=== PATIENT | female | born 1990 | race Caucasian/White ===

== ENCOUNTER 2019-12-24 03:25 | Inpatient (IN) | payer BC ==
[2019-12-24] MEDS ORDERED: Ondansetron 4 MG/2 ML SDV IVPUSH PRN (03:43)
[2019-12-24] MEDS ORDERED: Sodium Chloride 0.9% 10 ML Syringe FLUSH PRN (03:43)
[2019-12-24] MEDS ORDERED: Ampicillin 2 GM in Sodium Chloride 0.9% 100 ML IV ONE (03:43)
[2019-12-24] MEDS ORDERED: Oxytocin/Lactated Ringers 10 UNIT/1,000 ML BAG IV SCH ×2 (03:45→11:30)
[2019-12-24] MEDS: Lactated Ringers 1,000 ML IV SCH ×3 (03:54→07:55)
[2019-12-24] MEDS ORDERED: ePHEDrine 50 MG/ML SDV IVPUSH PRN (04:31)
[2019-12-24] MEDS ORDERED: Bupivacaine/fentaNYL/NS 100 ML Bag EPIDUR PRN (04:31)
[2019-12-24] MEDS ORDERED: diphenhydrAMINE 50 MG/ML SDV IVPUSH PRN ×2 (04:31→14:01)
[2019-12-24] MEDS ORDERED: fentaNYL 100 MCG/2 ML SDV EPIDUR PRN (04:31)
--- NOTE | 2019-12-24 05:03 | PCM.PREANE ---
Preanesthetic Assessment - Anesthesia/Transfusion/Family Hx Anesthesia History: Prior Anesthesia Without Reaction Transfusion History: No Prior Transfusion(s) - Review of Systems General: No Symptoms Pulmonary: No Symptoms Cardiovascular: No Symptoms Gastrointestinal: No Symptoms Neurological: No Symptoms Other: Reports: None - Physical Assessment Vital Signs: Last Vital Signs Temp 98.2 F 12/24/19 03:32 Pulse 97 12/24/19 03:32 Resp 16 12/24/19 03:32 BP 147/85 H 12/24/19 03:32 Pulse Ox 98 12/24/19 03:32 Height: 1.65 m Weight: 118.252 kg ASA Class: 2 Airway Class: Mallampati = 3 Thyro-Mental Finger Breadths: 3 Mouth Opening Finger Breadths: 3 ROM/Head Extension: Full Lungs: Clear to Auscultation, Normal Respiratory Effort Cardiovascular: Regular Rate, Regular Rhythm - Lab Values: Laboratory Last Values WBC 16.96 K/mm3 (3.98-10.04) H 12/24/19 03:55 RBC 4.43 M/mm3 (3.98-5.22) 12/24/19 03:55 Hgb 12.8 gm/dl (11.2-15.7) 12/24/19 03:55 Hct 37.9 % (34.1-44.9) 12/24/19 03:55 MCV 85.6 fl (79.4-94.8) 12/24/19 03:55 MCH 28.9 pg (25.6-32.2) 12/24/19 03:55 MCHC 33.8 g/dl (32.2-35.5) 12/24/19 03:55 RDW Std Deviation 41.3 fL (36.4-46.3) 12/24/19 03:55 Plt Count 243 K/mm3 (182-369) 12/24/19 03:55 MPV 11.1 fl (9.4-12.3) 12/24/19 03:55 Neut % (Auto) 82.2 % (34.0-71.1) H 12/24/19 03:55 Lymph % (Auto) 9.4 % (19.3-51.7) L 12/24/19 03:55 [place] % (Auto) 7.2 % (4.7-12.5) 12/24/19 03:55 Eos % (Auto) 0.5 (0.7-5.8) L 12/24/19 03:55 Baso % (Auto) 0.1 % (0.1-1.2) 12/24/19 03:55 Neut # (Auto) 13.94 K/mm3 (1.56-6.13) H 12/24/19 03:55 Lymph # (Auto) 1.60 K/mm3 (1.18-3.74) 12/24/19 03:55 [place] # (Auto) 1.22 K/mm3 (0.24-0.36) H 12/24/19 03:55 Eos # (Auto) 0.08 K/mm3 (0.04-0.36) 12/24/19 03:55 Baso # (Auto) 0.02 K/mm3 (0.01-0.08) 12/24/19 03:55 Blood Type A POSITIVE 12/24/19 03:55 - Allergies Allergies/Adverse Reactions: Allergies Allergy/AdvReac Type Severity Reaction Status Date / Time No Known Allergies Allergy Verified 12/24/19 03:45 - Acknowledgements Anesthesia Type Planned: Epidural Pt an Appropriate Candidate for the Planned Anesthesia: Yes Alternatives and Risks of Anesthesia Discussed w Pt/Guardian: Yes Pt/Guardian Understands and Agrees with Anesthesia Plan: Yes PreAnesthesia Questionnaire Respiratory History: Reports: Asthma, Bronchitis, Recurrent Genitourinary History: Reports: STD, Other (See Below) Other Genitourinary History: HPV 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: , Other (See Below) Other OB/BYN History: abnormal pap Endocrine/Metabolic History: Reports: Obesity/BMI 30+ - SUBSTANCE USE Smoking Status *Q: Never Smoker Recreational Drug Use History: No - HOME MEDS Home Medications: Home Meds Vits #93/Iron Fum/FA [ Formula Tablet] 12/24/19 [History] - CURRENT (IN HOUSE) MEDS Current Meds: Current Medications Diphenhydramine HCl (Benadryl) 25 mg IVPUSH Q6H PRN PRN Reason: pruritis Ephedrine Sulfate (Ephedrine Sulfate) 5 mg IVPUSH ASDIRECTED PRN PRN Reason: Hypotension Fentanyl (Sublimaze) 100 mcg EPIDUR Q3H PRN PRN Reason: Pain Fentanyl/Bupivacaine HCl (Fentanyl/Bupivacaine/Ns 2 Mcg-0.125% 100 Ml) 100 ml EPIDUR ASDIRECTED PRN PRN Reason: Pain Ampicillin Sodium 1 gm/ Sodium (Chloride) 100 mls @ 200 mls/hr IV Q4H ISIS Lactated Ringer's (Ringers, Lactated) 1,000 mls @ 100 mls/hr IV ASDIRECTED ISIS Last Admin: 12/24/19 03:54 Dose: 999 mls/hr Oxytocin/Lactated Ringer's (Pitocin In Lr 10 Units/1,000 Ml) 10 unit in 1,000 mls @ 500 mls/hr IV .CONTINUOUS ISIS Ondansetron HCl (Zofran) 4 mg IVPUSH Q4H PRN PRN Reason: Nausea/Vomiting Sodium Chloride (Saline Flush) 10 ml FLUSH ASDIRECTED PRN PRN Reason: Keep Vein Open Discontinued Medications Ampicillin Sodium 2 gm/ Sodium (Chloride) 100 mls @ 200 mls/hr IV ONETIME ONE Stop: 12/24/19 04:12 Last Admin: 12/24/19 03:57 Dose: 200 mls/hr
[2019-12-24] MEDS: Ketorolac 30 MG/ML SDV IVPUSH SCH ×2 (06:48→18:21)
--- NOTE | 2019-12-24 07:15 | PCM.LDHP ---
L&D History of Present Illness - General Date of Service: 12/24/19 Admit Problem/Dx: Patient Status Order with Admit Dx/Problem 12/24/19 03:43 Patient Status [ADT] Routine Admission Diagnosis/Problem Admission Diagnosis/Problem Source of Information: Patient History Limitations: Reports: No Limitations - History of Present Illness Introduction:: Patient is a 29 y/o at 40 1/7 wks who presents for SROM/labor. Thinks SROM was late last night around 2300. Contractions strong on arrival at about 0330. Currently comfortable with epidural. 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: : 1 Para: 0 LMP (Approximate): Endocrine/Metabolic History: Reports: Obesity/BMI 30+ - Past Surgical History HEENT Surgical History: Reports: Oral Surgery Female Surgical History: Reports: LEEP Social & Family History - Tobacco Use Smoking Status *Q: Never Smoker - Alcohol Use Alcohol Use History: No - Recreational Drug Use Recreational Drug Use: No H&P Review of Systems - Review of Systems: Review Of Systems: See Below General: Reports: No Symptoms Pulmonary: Reports: No Symptoms Cardiovascular: Reports: No Symptoms Gastrointestinal: Reports: No Symptoms Genitourinary: Reports: No Symptoms Musculoskeletal: Reports: No Symptoms Psychiatric: Reports: No Symptoms L&D Exam - Exam Exam: See Below - Vital Signs Vital Signs: Last Vital Signs Temp 36.8 C 12/24/19 03:32 Pulse 97 12/24/19 03:32 Resp 16 12/24/19 03:32 BP 147/85 H 12/24/19 03:32 Pulse Ox 98 12/24/19 03:32 Weight: 118.252 kg - OB Specific Contraction Intensity: Moderate to Strong Movement: Active Heart Tones: Present Heart Tones per Min: 170 Heart Rate (FHR) Variability: Moderate (6-25 bmp) Presentation: Vertex - Hutton Score Hutton Score Cervix Position: Anterior Hutton Score Effacement: >80% Hutton Score Dilation: > 5 cm Hutton Score Infant's Station: -1 ,0 - Exam General: Alert, Oriented, Cooperative Lungs: Clear to Auscultation, Normal Respiratory Effort Cardiovascular: Regular Rate, Regular Rhythm GI/Abdominal Exam: Soft, Non-Tender Genitourinary: Normal external exam Extremities: Normal Inspection Skin: Warm, Dry, Intact - Patient Data Lab Results Last 24 hrs: Laboratory Results - last 24 hr 12/24/19 12/24/19 Range/Units 03:55 03:55 WBC 16.96 H (3.98-10.04) K/mm3 RBC 4.43 (3.98-5.22) M/mm3 Hgb 12.8 (11.2-15.7) gm/dl Hct 37.9 (34.1-44.9) % MCV 85.6 (79.4-94.8) fl MCH 28.9 (25.6-32.2) pg MCHC 33.8 (32.2-35.5) g/dl RDW Std Deviation 41.3 (36.4-46.3) fL Plt Count 243 (182-369) K/mm3 MPV 11.1 (9.4-12.3) fl Neut % (Auto) 82.2 H (34.0-71.1) % Lymph % (Auto) 9.4 L (19.3-51.7) % [place] % (Auto) 7.2 (4.7-12.5) % Eos % (Auto) 0.5 L (0.7-5.8) Baso % (Auto) 0.1 (0.1-1.2) % Neut # (Auto) 13.94 H (1.56-6.13) K/mm3 Lymph # (Auto) 1.60 (1.18-3.74) K/mm3 [place] # (Auto) 1.22 H (0.24-0.36) K/mm3 Eos # (Auto) 0.08 (0.04-0.36) K/mm3 Baso # (Auto) 0.02 (0.01-0.08) K/mm3 Manual Slide Review Abnormal smear Blood Type A POSITIVE Gel Antibody Screen Negative Result Diagrams: 12/24/19 03:55 - Problem List (1) 40 weeks gestation of SNOMED Code(s): 42740587 ICD Code: Z3A.40 - 40 WEEKS GESTATION OF Status: Acute Current Visit: Yes (2) SROM (spontaneous rupture of membranes) SNOMED Code(s): 029011197 ICD Code: [id number] - Status: Acute Current Visit: Yes Problem List Initiated/Reviewed/Updated: Yes Orders Last 24hrs: Active Orders 24 hr Category Date Time Status Patient Status [ADT] Routine ADT 12/24/19 03:43 Active Activity as Tolerated [RC] PFP Care 12/24/19 03:43 Active Communication Order [RC] ASDIRECTED Care 12/24/19 03:43 Active Heart Tones [RC] ASDIRECTED Care 12/24/19 03:43 Active Non Stress Test [RC] PER UNIT ROUTINE Care 12/24/19 03:43 Active Notify Provider [RC] ASDIRECTED Care 12/24/19 04:31 Active Notify Provider [RC] PFP Care 12/24/19 03:43 Active Notify Provider [RC] PRN Care 12/24/19 03:43 Active Peripheral IV Care [RC] . DIRECTED Care 12/24/19 03:43 Active Vital Signs [RC] PER UNIT ROUTINE Care 12/24/19 03:43 Active Regular Diet [DIET] Diet 12/24/19 Breakfast Active PATIENT RETYPE [BBK] Routine Lab 12/24/19 04:49 Ordered RAPID PLASMA REAGIN,RPR [CHEM] Routine Lab 12/24/19 03:55 Received Ampicillin 1 gm Med 12/24/19 08:00 Active Sodium Chloride 0.9% [Normal Saline] 100 ml IV Q4H Bupivacaine/fentaNYL/NS [fentaNYL/Bupivacaine/NS 2 MCG- Med 12/24/19 04:31 Active 0.125% 100 ML] 100 ml EPIDUR ASDIRECTED PRN Lactated Ringers [Ringers, Lactated] 1,000 ml Med 12/24/19 03:45 Active IV ASDIRECTED Ondansetron [Zofran] Med 12/24/19 03:43 Active 4 mg IVPUSH Q4H PRN Oxytocin/Lactated Ringers [Pitocin in LR 10 Units/1,000 Med 12/24/19 03:45 Active ML] 10 unit in 1,000 ml IV .CONTINUOUS Sodium Chloride 0.9% [Saline Flush] Med 12/24/19 03:43 Active 10 ml FLUSH ASDIRECTED PRN diphenhydrAMINE [Benadryl] Med 12/24/19 04:31 Active 25 mg IVPUSH Q6H PRN ePHEDrine [ePHEDrine sulfate] Med 12/24/19 04:31 Active 5 mg IVPUSH ASDIRECTED PRN fentaNYL [Sublimaze] Med 12/24/19 04:31 Active 100 mcg EPIDUR Q3H PRN Electronic Heart Tones Ext w TOCO [WOMSER] Oth 12/24/19 03:43 Ordered Routine Electronic Heart Tones Internal [WOMSER] Per Unit Oth 12/24/19 03:43 Ordered Routine Peripheral IV Insertion Adult [OM.PC] Routine Oth 12/24/19 03:43 Ordered Resuscitation Status Routine Resus Stat 12/24/19 03:43 Ordered Medication Orders Diphenhydramine HCl (Benadryl) 25 mg IVPUSH Q6H PRN PRN Reason: pruritis Ephedrine Sulfate (Ephedrine Sulfate) 5 mg IVPUSH ASDIRECTED PRN PRN Reason: Hypotension Last Admin: 12/24/19 06:26 Dose: 5 mg Fentanyl (Sublimaze) 100 mcg EPIDUR Q3H PRN PRN Reason: Pain Last Admin: 12/24/19 05:20 Dose: 100 mcg Fentanyl/Bupivacaine HCl (Fentanyl/Bupivacaine/Ns 2 Mcg-0.125% 100 Ml) 100 ml EPIDUR ASDIRECTED PRN PRN Reason: Pain Last Admin: 12/24/19 05:44 Dose: 100 ml Ampicillin Sodium 1 gm/ Sodium (Chloride) 100 mls @ 200 mls/hr IV Q4H ISIS Lactated Ringer's (Ringers, Lactated) 1,000 mls @ 100 mls/hr IV ASDIRECTED ISIS Last Admin: 12/24/19 04:55 Dose: 999 mls/hr Infusion: 12/24/19 04:55 Dose: 999 mls/hr Admin: 12/24/19 03:54 Dose: 999 mls/hr Oxytocin/Lactated Ringer's (Pitocin In Lr 10 Units/1,000 Ml) 10 unit in 1,000 mls @ 500 mls/hr IV .CONTINUOUS ISIS Ondansetron HCl (Zofran) 4 mg IVPUSH Q4H PRN PRN Reason: Nausea/Vomiting Sodium Chloride (Saline Flush) 10 ml FLUSH ASDIRECTED PRN PRN Reason: Keep Vein Open Assessment/Plan Comment:: * When patient admitted at 0330 was 5 cm dilated. Currently on my assessment at 0700 was 8-9 cm. When first arrived had FHR elevated at 165/170 baseline. Otherwise normal. Desired epidural on arrival. Hope was after fluid bolus FHR would drop into normal range. Epidural started around 0500 and completed shortly thereafter. FHR normalized briefly (but still upper limit) and with some what appear to be late decelerations. Currently IUPC placed to allow better assessment of contractions and FHR. Baseline is elevated, but otherwise FHR is appropriate currently. Patient assessed multiple times and without fever. Will add on TSH/T4 to assess for cause of tachycardia. Will continue to monitor closely and attempt to obtain vaginal delivery * On Ampicillin for GBS positive status * Epidural in place * Patient laboring effectively without need for augmentation
[2019-12-24] MEDS: Ampicillin 1 GM in Sodium Chloride 0.9% 100 ML IV SCH (07:55)
[2019-12-24] MEDS ORDERED: Metoclopramide 10 MG/2 ML SDV ONE (11:18)
[2019-12-24] MEDS ORDERED: Citric Acid/Sodium Citrate Solution 30 ML Cup ONE (11:18)
[2019-12-24] MEDS ORDERED: Metoclopramide 10 MG/2 ML SDV IVPUSH ONE (11:20)
[2019-12-24] MEDS ORDERED: Citric Acid/Sodium Citrate Solution 30 ML Cup PO ONE (11:20)
[2019-12-24] MEDS ORDERED: ceFAZolin 2 GM in Premix Bag 1 BAG IV ONE (11:20)
[2019-12-24] MEDS ORDERED: Azithromycin 500 MG in Sodium Chloride 0.9% 250 ML IV ONE ×2 (11:24→11:30)
[2019-12-24] MEDS ORDERED: Lactated Ringers 1,000 ML IV SCH (11:30)
[2019-12-24] MEDS ORDERED: Lactated Ringers 1,000 ML ONE (11:37)
[2019-12-24] MEDS ORDERED: ceFAZolin 1 GM Vial ONE (11:37)
[2019-12-24] MEDS ORDERED: Morphine PF 1 MG/ML Amp ONE (11:44)
[2019-12-24] MEDS ORDERED: Oxytocin 10 Units/1 ML SDV ONE (12:19)
--- NOTE | 2019-12-24 12:32 | PCM.OPNOTE ---
- General Post-Op/Procedure Note Date of Surgery/Procedure: 12/24/19 Operative Procedure(s): Primary low transverse Findings: Baby girl in vertex presentation - ROP, deep arrest. Baby with weight of 3590 gras and APGARS of 5 & 9. Cord gases of 7.23 and 7.18. Uterus with deep extension down right to cervix. Hysterotomy also with almost separation between layers of muscle inferior to incision. Otherwise normal appearance of remainder of uterus, fallopian tubes, and ovaries Pre Op Diagnosis: 40 1/7 wks. tachycardia - NRFS. 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 Speed/safety of procedure. Anticipated level of difficulty with surgery Pathology: Cord gasses collected. Cord blood collected Fluid Replacement, Intraop: 2,000 Output, Urine Amount: 200 EBL in mLs: 1,200 Complications: None Condition: Good Free Text/Narrative:: The risks, benefits, indications, potential complications, and alternatives were explained to the patient and informed consent obtained. After induction of anesthesia, the patient was placed in a supine position and then draped and prepped in the usual sterile manner. A Pfannenstiel incision was made and carried down through the subcutaneous tissue to the fascia. Fascial incision was made and extended transversely. The fascia was from the underlying rectus tissue superiorly and inferiorly. The peritoneum was identified and entered. Peritoneal incision was extended longitudinally. The utero-vesical peritoneal reflection was incised transversely and the bladder flap was bluntly freed from the lower uterine segment. A low transverse uterine incision was made sharply with a scalpel and extended bluntly in a cephalocaudad direction. A baby girl noted to be in deep arrest. Hysterotomy level with infant shoulder. With difficulty hand able to be placed around head and head flexed. Suction broken with this motion and baby girl was delivered from ROP presentation with APGARS as above. After the umbilical cord was clamped and cut a cord section was obtained for cord gases. Next, cord blood was obtained for evaluation. The placenta was removed intact and appeared normal. The uterus was exteriorized and cleared of clots. The left apex of hysterotomy was identified and a running, locked 0 vicryl suture was used to close hysterotomy to mid point. At this point it was noted that inferior to hysterotomy uterine muscle layers were . A new 0 vicryl suture was used to carefully incorporate these tissues into closure as well. This suture was run towards right apex which did involve an extension towards cervix. Several interrupted sutures of 0 vicryl then placed at both right and left apexes in a figure of eight fashion to control bleeding. The uterus was then placed back into the abdomen. The infracolic gutters were cleared of blood clots and irrigation performed. The fascia was then reapproximated with running sutures of 1 PDS. The subcutaneous tissue was irrigated with sterile warm normal saline, hemostasis obtained with cautery. This layer was also closed with a running 0 vicryl suture. The skin was reapproximated with running Subcuticular 4-0 monocryl sutures. Instrument, sponge, and needle counts were correct prior the abdominal closure and at the conclusion of the case.
[2019-12-24] MEDS ORDERED: Ketorolac 30 MG/ML SDV ONE (12:39)
--- NOTE | 2019-12-24 13:57 | PCM.POSTAN ---
POST ANESTHESIA ASSESSMENT - MENTAL STATUS Mental Status: Alert, Oriented - VITAL SIGNS Vital Signs: Postoperative set of vitals: BP:103/44, HR: 104, SpO2: 94%, RR: 18, T ; 99.5 F Last Vital Signs Temp 99.0 F 12/24/19 13:15 Pulse 82 12/24/19 13:15 Resp 20 12/24/19 13:15 BP 112/56 L 12/24/19 13:15 Pulse Ox 98 12/24/19 13:15 - RESPIRATORY Respiratory Status: Respiratory Rate WNL, Airway Patent, O2 Saturation Stable - CARDIOVASCULAR CV Status: Pulse Rate WNL, Blood Pressure Stable, Elevated Pulse Rate - GASTROINTESTINAL GI Status: No Symptoms - PAIN Pain Score: 0 (post epidural) - POST OP HYDRATION Hydration Status: Adequate & Stable
[2019-12-24] MEDS ORDERED: Dextrose 5%-Lactated Ringers 1,000 ML IV SCH (14:01)
[2019-12-24] MEDS ORDERED: Naloxone 0.4 MG/ML SDV IVPUSH PRN (14:01)
[2019-12-24] MEDS ORDERED: Witch Hazel Medicated Pads 40/Jar TOP PRN (14:01)
[2019-12-24] MEDS ORDERED: Ondansetron 4 MG/2 ML SDV IV PRN (14:01)
--- NOTE | 2019-12-24 20:01 | PCM.SN ---
- Free Text/Narrative Note: Late entry Patient able to achieve complete dilation by 0930. Still with tachycardia and intermittent decelerations. Began pushing and with this FHR began to elevate further into the 185 and 190. Patient pushing with good effort , but thought to be in OP presentation. +1 station at rest, but down to + 2 with pushing. Reviewed options and patient did agree to trial of VAVD. Vacuum applied at 1056 and with next 3 contractions some movement of fetus noted down into pelvis. Pop off at 1100. As head had descended she was encouraged to push on her own, but with waning effort. Vacuum applied once more at 1111 and used over 1 contraction, but removed at 1114 after no further descent felt. Total pressure of 600 mm Hg and total time of 8 minutes. Patient informed not felt appropriate to continue with attempted vacuum extraction. Agreeable to PLTCS for concerns of status and also FTP in 2nd stage. Maribel Prasad MD
[2019-12-25] MEDS: Ketorolac 30 MG/ML SDV IVPUSH SCH (00:57)
[2019-12-25] MEDS: Acetaminophen/oxyCODONE 325-5 MG Tab PO PRN ×4 (06:04→23:09)
--- NOTE | 2019-12-25 06:48 | PCM.PNPP ---
- General Info Date of Service: 12/25/19 Functional Status: Reports: Pain Controlled, Tolerating Diet, Ambulating, Urinating - Review of Systems General: Reports: No Symptoms Pulmonary: Reports: No Symptoms Cardiovascular: Reports: No Symptoms Gastrointestinal: Reports: Abdominal Pain (managed with medications ) Genitourinary: Reports: No Symptoms Musculoskeletal: Reports: No Symptoms Neurological: Reports: No Symptoms - Patient Data Vital Signs - Most Recent: Last Vital Signs Temp 37.1 C 12/25/19 01:01 Pulse 100 12/25/19 03:42 Resp 16 12/25/19 06:00 BP 106/80 12/25/19 03:42 Pulse Ox 98 12/25/19 06:00 Weight - Most Recent: 118.252 kg I&O - Last 24 Hours: Intake & Output 12/24/19 12/24/19 12/25/19 14:59 22:59 06:59 Intake Total 700 2760 Output Total 268 037 6180 Balance 460 1810 -1000 Lab Results - Last 24 Hours: Laboratory Results - last 24 hr 12/24/19 12/24/19 12/24/19 Range/Units 03:55 03:55 03:55 WBC (3.98-10.04) K/mm3 RBC (3.98-5.22) M/mm3 Hgb (11.2-15.7) gm/dl Hct (34.1-44.9) % MCV (79.4-94.8) fl MCH (25.6-32.2) pg MCHC (32.2-35.5) g/dl RDW Std Deviation (36.4-46.3) fL Plt Count (182-369) K/mm3 MPV (9.4-12.3) fl Free T4 0.86 (0.76-1.46) ng/dL TSH 3rd Generation 4.153 H (0.358-3.74) uIU/mL RPR Non-reactive (NONREACTIVE) Blood Type A POSITIVE Gel Antibody Screen Negative 12/25/19 Range/Units 05:54 WBC 19.12 H (3.98-10.04) K/mm3 RBC 3.06 L (3.98-5.22) M/mm3 Hgb 8.7 L D (11.2-15.7) gm/dl Hct 27.1 L (34.1-44.9) % MCV 88.6 D (79.4-94.8) fl MCH 28.4 (25.6-32.2) pg MCHC 32.1 L (32.2-35.5) g/dl RDW Std Deviation 42.8 (36.4-46.3) fL Plt Count 183 (182-369) K/mm3 MPV 11.1 (9.4-12.3) fl Free T4 (0.76-1.46) ng/dL TSH 3rd Generation (0.358-3.74) uIU/mL RPR (NONREACTIVE) Blood Type Gel Antibody Screen Med Orders - Current: Current Medications Diphenhydramine HCl (Benadryl) 25 mg IVPUSH Q6H PRN PRN Reason: Itching or Nausea Docusate Sodium (Colace) 100 mg PO Q12H PRN PRN Reason: Constipation Ibuprofen (Motrin) 600 mg PO Q6H PRN PRN Reason: mild pain or fever Naloxone HCl (Narcan) 0.1 mg IVPUSH SEECOMMENT PRN PRN Reason: Respiratory Depression Ondansetron HCl (Zofran) 4 mg IV Q8H PRN PRN Reason: Nausea/Vomiting Oxycodone/Acetaminophen (Percocet 325-5 Mg) 1 tab PO Q4H PRN PRN Reason: Pain (moderate 4-6) Oxycodone/Acetaminophen (Percocet 325-5 Mg) 2 tab PO Q4H PRN PRN Reason: Pain (severe 7-10) Last Admin: 12/25/19 06:04 Dose: 2 tab Witch Panfilo (Tucks) 1 pad TOP ASDIRECTED PRN PRN Reason: Perineal Comfort Measure Discontinued Medications Cefazolin Sodium (Ancef) Confirm Administered Dose 3 gm .ROUTE .STK-MED ONE Stop: 12/24/19 11:38 Citric Acid/Sodium Citrate (Bicitra Solution) Confirm Administered Dose 30 ml .ROUTE .STK-MED ONE Stop: 12/24/19 11:19 Citric Acid/Sodium Citrate (Bicitra Solution) 30 ml PO ONETIME ONE Stop: 12/24/19 11:21 Last Admin: 12/24/19 11:18 Dose: 30 ml Diphenhydramine HCl (Benadryl) 25 mg IVPUSH Q6H PRN PRN Reason: pruritis Ephedrine Sulfate (Ephedrine Sulfate) 5 mg IVPUSH ASDIRECTED PRN PRN Reason: Hypotension Last Admin: 12/24/19 06:26 Dose: 5 mg Fentanyl (Sublimaze) 100 mcg EPIDUR Q3H PRN PRN Reason: Pain Last Admin: 12/24/19 05:20 Dose: 100 mcg Fentanyl/Bupivacaine HCl (Fentanyl/Bupivacaine/Ns 2 Mcg-0.125% 100 Ml) 100 ml EPIDUR ASDIRECTED PRN PRN Reason: Pain Last Admin: 12/24/19 05:44 Dose: 100 ml Ampicillin Sodium 2 gm/ Sodium (Chloride) 100 mls @ 200 mls/hr IV ONETIME ONE Stop: 12/24/19 04:12 Last Admin: 12/24/19 03:57 Dose: 200 mls/hr Ampicillin Sodium 1 gm/ Sodium (Chloride) 100 mls @ 200 mls/hr IV Q4H [facility] Last Admin: 12/24/19 07:55 Dose: 200 mls/hr Lactated Ringer's (Ringers, Lactated) 1,000 mls @ 100 mls/hr IV ASDIRECTED [facility] Last Infusion: 12/24/19 07:55 Dose: 100 mls/hr Oxytocin/Lactated Ringer's (Pitocin In Lr 10 Units/1,000 Ml) 10 unit in 1,000 mls @ 500 mls/hr IV .CONTINUOUS [facility] Azithromycin 500 mg/ Sodium (Chloride) 250 mls @ 250 mls/hr IV ONETIME ONE Stop: 12/24/19 12:29 Cefazolin Sodium/Dextrose 2 gm (/ Premix) 50 mls @ 100 mls/hr IV ONETIME ONE Stop: 12/24/19 11:49 Lactated Ringer's (Ringers, Lactated) 1,000 mls @ 125 mls/hr IV ASDIRECTED [facility] Oxytocin/Lactated Ringer's (Pitocin In Lr 10 Units/1,000 Ml) 10 unit in 1,000 mls @ 100 mls/hr IV ASDIRECTED [facility] Lactated Ringer's (Ringers, Lactated) Confirm Administered Dose 1,000 mls @ as directed .ROUTE .[facility]-MED ONE Stop: 12/24/19 11:38 Dextrose/Lactated Ringer's (Dextrose 5%-Lactated Ringers) 1,000 mls @ 125 mls/ hr IV ASDIRECTED [facility] Stop: 12/24/19 22:00 Last Admin: 12/24/19 18:21 Dose: 125 mls/hr Ketorolac Tromethamine (Toradol) Confirm Administered Dose 30 mg .ROUTE .STK- MED ONE Stop: 12/24/19 12:40 Ketorolac Tromethamine (Toradol) 30 mg IVPUSH Q6H [facility] Stop: 12/25/19 06:31 Last Admin: 12/25/19 00:57 Dose: 30 mg Metoclopramide HCl (Reglan) Confirm Administered Dose 10 mg .ROUTE .STK-MED ONE Stop: 12/24/19 11:19 Metoclopramide HCl (Reglan) 10 mg IVPUSH ONETIME ONE Stop: 12/24/19 11:21 Last Admin: 12/24/19 11:19 Dose: 10 mg Miscellaneous Medication (Phenylephrine 1 Mg/10 Ml-Ns) Confirm Administered Dose 1 mg IV .STK-MED ONE Stop: 12/24/19 11:52 Miscellaneous Medication (Phenylephrine 1 Mg/10 Ml-Ns) Confirm Administered Dose 1 mg IV .STK-MED ONE Stop: 12/24/19 12:15 Morphine Sulfate (Duramorph Pf) Confirm Administered Dose 1 mg .ROUTE .STK-MED ONE Stop: 12/24/19 11:45 Ondansetron HCl (Zofran) 4 mg IVPUSH Q4H PRN PRN Reason: Nausea/Vomiting Oxytocin (Pitocin) Confirm Administered Dose 10 unit .ROUTE .STK-MED ONE Stop: 12/24/19 12:20 Sodium Chloride (Saline Flush) 10 ml FLUSH ASDIRECTED PRN PRN Reason: Keep Vein Open - Infant Interaction Infant Disposition, : to Nursery Infant Feeding: Other (see below) (Pumping while baby in nursery - Level 2) Support Person: - Recovery Exam Fundal Tone: Firm Fundal Level: At Umbilicus Fundal Placement: Midline Lochia Amount: Small Lochia Color: Rubra/Red Perineum Description: Intact, Minimal Bruising/Swelling Bladder Status: Indwelling Catheter in Place - Exam General: Alert, Oriented, Cooperative Lungs: Clear to Auscultation, Normal Respiratory Effort Cardiovascular: Regular Rate, Regular Rhythm GI/Abdominal Exam: Soft, Tender (Appropriate post op) Extremities: Normal Inspection Skin: Warm, Dry, Intact Wound/Incisions: Dressing Dry and Intact - Problem List & Annotations (1) 40 weeks gestation of SNOMED Code(s): 51727234 Code(s): Z3A.40 - 40 WEEKS GESTATION OF Status: Acute Current Visit: Yes (2) SROM (spontaneous rupture of membranes) SNOMED Code(s): 001108409 Code(s): FNV9287 - Status: Acute Current Visit: Yes (3) tachycardia affecting care of mother, delivered SNOMED Code(s): 749308031, 324496359, 451039406 Code(s): O76 - ABNLT IN HEART RATE AND RHYTHM COMP LABOR AND DELIVERY Status: Acute Current Visit: Yes (4) Non-reassuring heart rate or rhythm affecting management of mother SNOMED Code(s): 89752643, 717511859 Code(s): O36.8390 - MATERN CARE FOR ABNLT FETL HRT RATE OR RHYM, UNSP TRI, UNSP Status: Acute Current Visit: Yes (5) Failed vacuum extraction, delivered, current hospitalization SNOMED Code(s): 884527587, 151616340 Code(s): O66.5 - ATTEMPTED APPLICATION OF VACUUM EXTRACTOR AND FORCEPS Status: Acute Current Visit: Yes (6) S/P primary low transverse SNOMED Code(s): 179696855, 12187033, 076497135, 828097063, 035962659 Code(s): Z98.891 - HISTORY OF UTERINE SCAR FROM PREVIOUS SURGERY Status: Acute Current Visit: Yes - Problem List Review Problem List Initiated/Reviewed/Updated: Yes - My Orders Last 24 Hours: My Active Orders 12/24/19 11:20 Communication Order [RC] ROUTINE Procedure Site Prep Instruct [RC] ASDIRECTED Verify Patient Consent Obtain [RC] PER UNIT ROUTINE Vital Signs [RC] PFP 12/24/19 14:01 Antiembolic Devices [RC] PER UNIT ROUTINE Communication Order [RC] PER UNIT ROUTINE Intake and Output [RC] Q4H May Shower [RC] PER UNIT ROUTINE Notify Provider Intake and Out [RC] ASDIRECTED RT Incentive Spirometry [RC] Q2HWA Vital Signs [RC] Q1HR Acetaminophen/oxyCODONE [Percocet 325-5 MG] 1 tab PO Q4H PRN Acetaminophen/oxyCODONE [Percocet 325-5 MG] 2 tab PO Q4H PRN Docusate Sodium [Colace] 100 mg PO Q12H PRN Naloxone [Narcan] 0.1 mg IVPUSH SEECOMMENT PRN Ondansetron [Zofran] 4 mg IV Q8H PRN diphenhydrAMINE [Benadryl] 25 mg IVPUSH Q6H PRN witch Panfilo [Tucks] 1 pad TOP ASDIRECTED PRN Assess Lochia [WOMSER] Per Unit Routine Assess Uterine Involution [WOMSER] Per Unit Routine Breast Pump [WOMSER] Per Unit Routine Peripheral IV Discontinue [OM.PC] Routine Sequential Compression Device [OM.PC] Per Unit Routine 12/24/19 Lunch Regular Diet [DIET] 12/25/19 12:30 Ibuprofen [Motrin] 600 mg PO Q6H PRN 12/25/19 12:34 Urinary Catheter Removal [RC] Per Unit Routine - Assessment Assessment:: POD#1 - Plan Plan:: * Routine cares * CBC with as expected drop. No further monitoring needed * Continue pumping while baby in Nursery * Discharge pending clinical course
[2019-12-25] MEDS: Ampicillin 1 GM in Sodium Chloride 0.9% 100 ML IV SCH (08:00)
--- NOTE | 2019-12-25 08:21 | PCM48HPAN ---
Post Anesthesia Note - EVALUATION WITHIN 48HRS OF ANESTHETIC Vital Signs in Normal Range: Yes Patient Participated in Evaluation: Yes Respiratory Function Stable: Yes Airway Patent: Yes Cardiovascular Function Stable: Yes Hydration Status Stable: Yes Pain Control Satisfactory: Yes Nausea and Vomiting Control Satisfactory: Yes Mental Status Recovered: Yes Vital Signs: Last Vital Signs Temp 37.1 C 12/25/19 01:01 Pulse 100 12/25/19 03:42 Resp 15 12/25/19 07:00 BP 106/80 12/25/19 03:42 Pulse Ox 99 12/25/19 07:00 - COMMENTS/OBSERVATIONS Free Text/Narrative:: Significant itching last evening, much improvement this morning.
[2019-12-25] MEDS: Ibuprofen 600 MG Tab PO PRN (21:14)
[2019-12-25] MEDS: Docusate Sodium 100 MG Cap PO PRN (21:14)
[2019-12-26] MEDS: Acetaminophen/oxyCODONE 325-5 MG Tab PO PRN ×6 (03:23→23:52)
[2019-12-26] MEDS: Ibuprofen 600 MG Tab PO PRN ×2 (04:06→21:05)
--- NOTE | 2019-12-26 07:16 | PCM.PNPP ---
- General Info Date of Service: 12/26/19 Functional Status: Reports: Pain Controlled, Tolerating Diet, Ambulating, Urinating - Review of Systems General: Reports: No Symptoms Pulmonary: Reports: No Symptoms Cardiovascular: Reports: No Symptoms Gastrointestinal: Reports: Abdominal Pain (controlled with medications ) Genitourinary: Reports: No Symptoms Musculoskeletal: Reports: No Symptoms Neurological: Reports: No Symptoms - Patient Data Vital Signs - Most Recent: Last Vital Signs Temp 36.4 C 12/26/19 02:34 Pulse 107 H 12/26/19 02:34 Resp 15 12/26/19 02:34 BP 129/61 12/26/19 02:34 Pulse Ox 94 L 12/26/19 02:34 Weight - Most Recent: 118.252 kg I&O - Last 24 Hours: Intake & Output 12/25/19 12/26/19 12/26/19 22:59 06:59 14:59 Intake Total 620 Balance 620 Med Orders - Current: Current Medications Diphenhydramine HCl (Benadryl) 25 mg IVPUSH Q6H PRN PRN Reason: Itching or Nausea Docusate Sodium (Colace) 100 mg PO Q12H PRN PRN Reason: Constipation Last Admin: 12/25/19 21:14 Dose: 100 mg Ibuprofen (Motrin) 600 mg PO Q6H PRN PRN Reason: mild pain or fever Last Admin: 12/26/19 04:06 Dose: 600 mg Naloxone HCl (Narcan) 0.1 mg IVPUSH SEECOMMENT PRN PRN Reason: Respiratory Depression Ondansetron HCl (Zofran) 4 mg IV Q8H PRN PRN Reason: Nausea/Vomiting Oxycodone/Acetaminophen (Percocet 325-5 Mg) 1 tab PO Q4H PRN PRN Reason: Pain (moderate 4-6) Oxycodone/Acetaminophen (Percocet 325-5 Mg) 2 tab PO Q4H PRN PRN Reason: Pain (severe 7-10) Last Admin: 12/26/19 03:23 Dose: 2 tab Witch Radha (Tucks) 1 pad TOP ASDIRECTED PRN PRN Reason: Perineal Comfort Measure Discontinued Medications Cefazolin Sodium (Ancef) Confirm Administered Dose 3 gm .ROUTE .STK-MED ONE Stop: 12/24/19 11:38 Citric Acid/Sodium Citrate (Bicitra Solution) Confirm Administered Dose 30 ml .ROUTE .STK-MED ONE Stop: 12/24/19 11:19 Last Admin: 12/25/19 07:50 Dose: Not Given Citric Acid/Sodium Citrate (Bicitra Solution) 30 ml PO ONETIME ONE Stop: 12/24/19 11:21 Last Admin: 12/24/19 11:18 Dose: 30 ml Diphenhydramine HCl (Benadryl) 25 mg IVPUSH Q6H PRN PRN Reason: pruritis Ephedrine Sulfate (Ephedrine Sulfate) 5 mg IVPUSH ASDIRECTED PRN PRN Reason: Hypotension Last Admin: 12/24/19 06:26 Dose: 5 mg Fentanyl (Sublimaze) 100 mcg EPIDUR Q3H PRN PRN Reason: Pain Last Admin: 12/24/19 05:20 Dose: 100 mcg Fentanyl/Bupivacaine HCl (Fentanyl/Bupivacaine/Ns 2 Mcg-0.125% 100 Ml) 100 ml EPIDUR ASDIRECTED PRN PRN Reason: Pain Last Admin: 12/24/19 05:44 Dose: 100 ml Ampicillin Sodium 2 gm/ Sodium (Chloride) 100 mls @ 200 mls/hr IV ONETIME ONE Stop: 12/24/19 04:12 Last Admin: 12/24/19 03:57 Dose: 200 mls/hr Ampicillin Sodium 1 gm/ Sodium (Chloride) 100 mls @ 200 mls/hr IV Q4H [facility] Last Admin: 12/25/19 08:00 Dose: Not Given Lactated Ringer's (Ringers, Lactated) 1,000 mls @ 100 mls/hr IV ASDIRECTED [facility] Last Infusion: 12/24/19 07:55 Dose: 100 mls/hr Oxytocin/Lactated Ringer's (Pitocin In Lr 10 Units/1,000 Ml) 10 unit in 1,000 mls @ 500 mls/hr IV .CONTINUOUS [facility] Azithromycin 500 mg/ Sodium (Chloride) 250 mls @ 250 mls/hr IV ONETIME ONE Stop: 12/24/19 12:29 Last Admin: 12/25/19 08:00 Dose: Not Given Cefazolin Sodium/Dextrose 2 gm (/ Premix) 50 mls @ 100 mls/hr IV ONETIME ONE Stop: 12/24/19 11:49 Last Admin: 12/25/19 07:59 Dose: Not Given Lactated Ringer's (Ringers, Lactated) 1,000 mls @ 125 mls/hr IV ASDIRECTED [facility] Oxytocin/Lactated Ringer's (Pitocin In Lr 10 Units/1,000 Ml) 10 unit in 1,000 mls @ 100 mls/hr IV ASDIRECTED [facility] Lactated Ringer's (Ringers, Lactated) Confirm Administered Dose 1,000 mls @ as directed .ROUTE .STK-MED ONE Stop: 12/24/19 11:38 Dextrose/Lactated Ringer's (Dextrose 5%-Lactated Ringers) 1,000 mls @ 125 mls/ hr IV ASDIRECTED [facility] Stop: 12/24/19 22:00 Last Admin: 12/24/19 18:21 Dose: 125 mls/hr Ketorolac Tromethamine (Toradol) Confirm Administered Dose 30 mg .ROUTE .STK- MED ONE Stop: 12/24/19 12:40 Ketorolac Tromethamine (Toradol) 30 mg IVPUSH Q6H [facility] Stop: 12/25/19 06:31 Last Admin: 12/25/19 00:57 Dose: 30 mg Metoclopramide HCl (Reglan) Confirm Administered Dose 10 mg .ROUTE .STK-MED ONE Stop: 12/24/19 11:19 Last Admin: 12/25/19 07:50 Dose: Not Given Metoclopramide HCl (Reglan) 10 mg IVPUSH ONETIME ONE Stop: 12/24/19 11:21 Last Admin: 12/24/19 11:19 Dose: 10 mg Miscellaneous Medication (Phenylephrine 1 Mg/10 Ml-Ns) Confirm Administered Dose 1 mg IV .STK-MED ONE Stop: 12/24/19 11:52 Miscellaneous Medication (Phenylephrine 1 Mg/10 Ml-Ns) Confirm Administered Dose 1 mg IV .STK-MED ONE Stop: 12/24/19 12:15 Morphine Sulfate (Duramorph Pf) Confirm Administered Dose 1 mg .ROUTE .STK-MED ONE Stop: 12/24/19 11:45 Ondansetron HCl (Zofran) 4 mg IVPUSH Q4H PRN PRN Reason: Nausea/Vomiting Oxytocin (Pitocin) Confirm Administered Dose 10 unit .ROUTE .STK-MED ONE Stop: 12/24/19 12:20 Sodium Chloride (Saline Flush) 10 ml FLUSH ASDIRECTED PRN PRN Reason: Keep Vein Open - Interaction Infant Disposition, : in Room with Family Infant Interaction: Holding Infant Feeding: Attempted ; Nursed Fair/Poor, Other (see below) ( Pumping as well) Support Person: - Recovery Exam Fundal Tone: Firm Fundal Level: At Umbilicus Fundal Placement: Midline Lochia Amount: Small Lochia Color: Rubra/Red Perineum Description: Intact, Minimal Bruising/Swelling Bladder Status: Voiding Urinary Elimination: Voided - Exam General: Alert, Oriented, Cooperative Lungs: Clear to Auscultation, Normal Respiratory Effort Cardiovascular: Regular Rate, Regular Rhythm GI/Abdominal Exam: Soft, Tender (appropriate post op) Extremities: Normal Inspection Skin: Warm, Dry, Intact Wound/Incisions: Healing Well, No Drainage - Problem List & Annotations (1) 40 weeks gestation of SNOMED Code(s): 86223930 Code(s): Z3A.40 - 40 WEEKS GESTATION OF Status: Acute Current Visit: Yes (2) SROM (spontaneous rupture of membranes) SNOMED Code(s): 268807544 Code(s): LPU9569 - Status: Acute Current Visit: Yes (3) tachycardia affecting care of mother, delivered SNOMED Code(s): 224751107, 193807351, 199900586 Code(s): O76 - ABNLT IN HEART RATE AND RHYTHM COMP LABOR AND DELIVERY Status: Acute Current Visit: Yes (4) Non-reassuring heart rate or rhythm affecting management of mother SNOMED Code(s): 74093234, 254092312 Code(s): O36.8390 - MATERN CARE FOR ABNLT FETL HRT RATE OR RHYM, UNSP TRI, UNSP Status: Acute Current Visit: Yes (5) Failed vacuum extraction, delivered, current hospitalization SNOMED Code(s): 810788884, 539291048 Code(s): O66.5 - ATTEMPTED APPLICATION OF VACUUM EXTRACTOR AND FORCEPS Status: Acute Current Visit: Yes (6) S/P primary low transverse SNOMED Code(s): 156691268, 82592655, 412139134, 273557820, 704212508 Code(s): Z98.891 - HISTORY OF UTERINE SCAR FROM PREVIOUS SURGERY Status: Acute Current Visit: Yes - Problem List Review Problem List Initiated/Reviewed/Updated: Yes - My Orders Last 24 Hours: My Active Orders 12/25/19 12:30 Ibuprofen [Motrin] 600 mg PO Q6H PRN 12/25/19 12:34 Urinary Catheter Removal [RC] Per Unit Routine - Assessment Assessment:: POD#2 - Plan Plan:: * Routine cares * Baby now back with mom, still on antibiotics * Continue to work on breast feeding * Discharge pending clinical course
[2019-12-26] MEDS: Docusate Sodium 100 MG Cap PO PRN ×2 (08:48→21:01)
[2019-12-27] MEDS: Acetaminophen/oxyCODONE 325-5 MG Tab PO PRN ×2 (05:35→12:13)
--- NOTE | 2019-12-27 08:25 | PCM.PNPP ---
- General Info Date of Service: 12/27/19 Functional Status: Reports: Pain Controlled, Tolerating Diet, Ambulating, Urinating - Review of Systems General: Reports: No Symptoms Pulmonary: Reports: No Symptoms Cardiovascular: Reports: No Symptoms Gastrointestinal: Reports: Abdominal Pain (managed with medications ) Genitourinary: Reports: No Symptoms Musculoskeletal: Reports: No Symptoms Neurological: Reports: No Symptoms - Patient Data Vital Signs - Most Recent: Last Vital Signs Temp 36.8 C 12/26/19 19:44 Pulse 101 H 12/27/19 06:16 Resp 16 12/27/19 06:16 BP 140/77 12/27/19 06:16 Pulse Ox 94 L 12/27/19 06:16 Weight - Most Recent: 118.252 kg I&O - Last 24 Hours: Intake & Output 12/26/19 12/27/19 12/27/19 22:59 06:59 14:59 Intake Total 480 Balance 480 Med Orders - Current: Current Medications Diphenhydramine HCl (Benadryl) 25 mg IVPUSH Q6H PRN PRN Reason: Itching or Nausea Docusate Sodium (Colace) 100 mg PO Q12H PRN PRN Reason: Constipation Last Admin: 12/26/19 21:01 Dose: 100 mg Ibuprofen (Motrin) 600 mg PO Q6H PRN PRN Reason: mild pain or fever Last Admin: 12/26/19 21:05 Dose: 600 mg Naloxone HCl (Narcan) 0.1 mg IVPUSH SEECOMMENT PRN PRN Reason: Respiratory Depression Ondansetron HCl (Zofran) 4 mg IV Q8H PRN PRN Reason: Nausea/Vomiting Oxycodone/Acetaminophen (Percocet 325-5 Mg) 1 tab PO Q4H PRN PRN Reason: Pain (moderate 4-6) Last Admin: 12/27/19 05:35 Dose: 1 tab Oxycodone/Acetaminophen (Percocet 325-5 Mg) 2 tab PO Q4H PRN PRN Reason: Pain (severe 7-10) Last Admin: 12/26/19 19:42 Dose: 2 tab Witch Radha (Tucks) 1 pad TOP ASDIRECTED PRN PRN Reason: Perineal Comfort Measure Discontinued Medications Cefazolin Sodium (Ancef) Confirm Administered Dose 3 gm .ROUTE .STK-MED ONE Stop: 03/30/20 11:38 Citric Acid/Sodium Citrate (Bicitra Solution) Confirm Administered Dose 30 ml .ROUTE .[facility]-MED ONE Stop: 12/24/19 11:19 Last Admin: 12/25/19 07:50 Dose: Not Given Citric Acid/Sodium Citrate (Bicitra Solution) 30 ml PO ONETIME ONE Stop: 12/24/19 11:21 Last Admin: 12/24/19 11:18 Dose: 30 ml Diphenhydramine HCl (Benadryl) 25 mg IVPUSH Q6H PRN PRN Reason: pruritis Ephedrine Sulfate (Ephedrine Sulfate) 5 mg IVPUSH ASDIRECTED PRN PRN Reason: Hypotension Last Admin: 12/24/19 06:26 Dose: 5 mg Fentanyl (Sublimaze) 100 mcg EPIDUR Q3H PRN PRN Reason: Pain Last Admin: 12/24/19 05:20 Dose: 100 mcg Fentanyl/Bupivacaine HCl (Fentanyl/Bupivacaine/Ns 2 Mcg-0.125% 100 Ml) 100 ml EPIDUR ASDIRECTED PRN PRN Reason: Pain Last Admin: 12/24/19 05:44 Dose: 100 ml Ampicillin Sodium 2 gm/ Sodium (Chloride) 100 mls @ 200 mls/hr IV ONETIME ONE Stop: 12/24/19 04:12 Last Admin: 12/24/19 03:57 Dose: 200 mls/hr Ampicillin Sodium 1 gm/ Sodium (Chloride) 100 mls @ 200 mls/hr IV Q4H [facility] Last Admin: 12/25/19 08:00 Dose: Not Given Lactated Ringer's (Ringers, Lactated) 1,000 mls @ 100 mls/hr IV ASDIRECTED [facility] Last Infusion: 12/24/19 07:55 Dose: 100 mls/hr Oxytocin/Lactated Ringer's (Pitocin In Lr 10 Units/1,000 Ml) 10 unit in 1,000 mls @ 500 mls/hr IV .CONTINUOUS [facility] Azithromycin 500 mg/ Sodium (Chloride) 250 mls @ 250 mls/hr IV ONETIME ONE Stop: 12/24/19 12:29 Last Admin: 12/25/19 08:00 Dose: Not Given Cefazolin Sodium/Dextrose 2 gm (/ Premix) 50 mls @ 100 mls/hr IV ONETIME ONE Stop: 12/24/19 11:49 Last Admin: 12/25/19 07:59 Dose: Not Given Lactated Ringer's (Ringers, Lactated) 1,000 mls @ 125 mls/hr IV ASDIRECTED [facility] Oxytocin/Lactated Ringer's (Pitocin In Lr 10 Units/1,000 Ml) 10 unit in 1,000 mls @ 100 mls/hr IV ASDIRECTED [facility] Lactated Ringer's (Ringers, Lactated) Confirm Administered Dose 1,000 mls @ as directed .ROUTE .STK-MED ONE Stop: 12/24/19 11:38 Dextrose/Lactated Ringer's (Dextrose 5%-Lactated Ringers) 1,000 mls @ 125 mls/ hr IV ASDIRECTED [facility] Stop: 12/24/19 22:00 Last Admin: 12/24/19 18:21 Dose: 125 mls/hr Ketorolac Tromethamine (Toradol) Confirm Administered Dose 30 mg .ROUTE .STK- MED ONE Stop: 12/24/19 12:40 Ketorolac Tromethamine (Toradol) 30 mg IVPUSH Q6H [facility] Stop: 12/25/19 06:31 Last Admin: 12/25/19 00:57 Dose: 30 mg Metoclopramide HCl (Reglan) Confirm Administered Dose 10 mg .ROUTE .STK-MED ONE Stop: 12/24/19 11:19 Last Admin: 12/25/19 07:50 Dose: Not Given Metoclopramide HCl (Reglan) 10 mg IVPUSH ONETIME ONE Stop: 12/24/19 11:21 Last Admin: 12/24/19 11:19 Dose: 10 mg Miscellaneous Medication (Phenylephrine 1 Mg/10 Ml-Ns) Confirm Administered Dose 1 mg IV .STK-MED ONE Stop: 12/24/19 11:52 Miscellaneous Medication (Phenylephrine 1 Mg/10 Ml-Ns) Confirm Administered Dose 1 mg IV .STK-MED ONE Stop: 12/24/19 12:15 Morphine Sulfate (Duramorph Pf) Confirm Administered Dose 1 mg .ROUTE .STK-MED ONE Stop: 12/24/19 11:45 Ondansetron HCl (Zofran) 4 mg IVPUSH Q4H PRN PRN Reason: Nausea/Vomiting Oxytocin (Pitocin) Confirm Administered Dose 10 unit .ROUTE .STK-MED ONE Stop: 12/24/19 12:20 Sodium Chloride (Saline Flush) 10 ml FLUSH ASDIRECTED PRN PRN Reason: Keep Vein Open - Interaction Disposition, : [place] in Room with Family Infant Interaction: Holding Infant Feeding: Attempted ; Nursed Fair/Poor Support Person: - Recovery Exam Fundal Tone: Firm Fundal Level: 1 Fingerbreadths Below Umbilicus Fundal Placement: Midline Lochia Amount: Scant Lochia Color: Rubra/Red Perineum Description: Intact, Minimal Bruising/Swelling Bladder Status: Voiding Urinary Elimination: Voided - Exam General: Alert, Oriented, Cooperative Lungs: Clear to Auscultation, Normal Respiratory Effort Cardiovascular: Regular Rate, Regular Rhythm GI/Abdominal Exam: Soft, Tender (appropriate post op) Extremities: Normal Inspection Skin: Warm, Dry, Intact Wound/Incisions: Healing Well, No Drainage - Problem List & Annotations (1) 40 weeks gestation of SNOMED Code(s): 11844429 Code(s): Z3A.40 - 40 WEEKS GESTATION OF Status: Acute Current Visit: Yes (2) SROM (spontaneous rupture of membranes) SNOMED Code(s): 545706167 Code(s): IJU6025 - Status: Acute Current Visit: Yes (3) tachycardia affecting care of mother, delivered SNOMED Code(s): 033767516, 333380968, 654059707 Code(s): O76 - ABNLT IN HEART RATE AND RHYTHM COMP LABOR AND DELIVERY Status: Acute Current Visit: Yes (4) Non-reassuring heart rate or rhythm affecting management of mother SNOMED Code(s): 72942342, 358133937 Code(s): O36.8390 - MATERN CARE FOR ABNLT FETL HRT RATE OR RHYM, UNSP TRI, UNSP Status: Acute Current Visit: Yes (5) Failed vacuum extraction, delivered, current hospitalization SNOMED Code(s): 872252388, 181926550 Code(s): O66.5 - ATTEMPTED APPLICATION OF VACUUM EXTRACTOR AND FORCEPS Status: Acute Current Visit: Yes (6) S/P primary low transverse SNOMED Code(s): 660514563, 08033128, 704475918, 251371321, 046690357 Code(s): Z98.891 - HISTORY OF UTERINE SCAR FROM PREVIOUS SURGERY Status: Acute Current Visit: Yes - Problem List Review Problem List Initiated/Reviewed/Updated: Yes - My Orders Last 24 Hours: My Active Orders 12/27/19 08:25 Ready for Discharge [RC] PER UNIT ROUTINE - Assessment Assessment:: POD#3 - Plan Plan:: * Routine cares * Breast feeding * Discharge today. Will be in house, however, while baby finishes antibiotics
--- NOTE | 2019-12-27 08:26 | PCM.DCSUM1 ---
Discharge Summary - Discharge Data Discharge Date: 12/27/19 Discharge Disposition: Home, Self-Care 01 Condition: Good - Referral to Home Health Primary Care Physician: Cassie Polanco MD - Discharge Diagnosis/Problem(s) (1) 40 weeks gestation of SNOMED Code(s): 53736350 ICD Code: Z3A.40 - 40 WEEKS GESTATION OF Status: Acute Current Visit: Yes (2) SROM (spontaneous rupture of membranes) SNOMED Code(s): 070093525 ICD Code: [id number] - Status: Acute Current Visit: Yes (3) tachycardia affecting care of mother, delivered SNOMED Code(s): 742356740, 058580126, 722124430 ICD Code: O76 - ABNLT IN HEART RATE AND RHYTHM COMP LABOR AND DELIVERY Status: Acute Current Visit: Yes (4) Non-reassuring heart rate or rhythm affecting management of mother SNOMED Code(s): 11840819, 610563987 ICD Code: O36.8390 - MATERN CARE FOR ABNLT FETL HRT RATE OR RHYM, UNSP TRI, UNSP Status: Acute Current Visit: Yes (5) Failed vacuum extraction, delivered, current hospitalization SNOMED Code(s): 741757701, 208729266 ICD Code: O66.5 - ATTEMPTED APPLICATION OF VACUUM EXTRACTOR AND FORCEPS Status: Acute Current Visit: Yes (6) S/P primary low transverse SNOMED Code(s): 225411288, 92780996, 118715277, 312851593, 293286780 ICD Code: Z98.891 - HISTORY OF UTERINE SCAR FROM PREVIOUS SURGERY Status: Acute Current Visit: Yes - Patient Summary/Data Operative Procedure(s) Performed: Primary low transverse Complications: None Consults: None Recommended Follow-up Testing/Procedures: Follow up in 1-2 weeks for post op check Hospital Course: 29 y/o admitted at 40 1/7 wks for labor/SROM. Was found to have tachycardia on initial presentation. Patient was checked numerous times and never with findings of a fever. She was making good change to complete dilation and so was monitored. When she began pushing, however, tachycardia worsened into the 190s and up into the 200s at that time. Because of this finding she was counseled that delivery should be expedited. An attempt was made at a vacuum-assisted vaginal delivery but unsuccessful. She was thus taken for a primary . See operative note for full details. Post delivery baby was found to be with infection but mom continued to be without any findings of fevers or infection. No additional antibiotics given. She did well postop with routine cares. Was discharged on post op day 3 - Patient Instructions Diet: Regular Diet as Tolerated Activity: No Lifting Over 10 Pounds Activity, Other: Pelvic rest for 6 weeks Driving: Do Not Drive (While taking narcotics ) Showering/Bathing: May Shower, No Tub Bathing/Swimming Wound/Incision Care: Keep Operative Site/Wound Site Clean and Dry Notify Provider of: Fever, Increased Pain, Swelling and Redness, Drainage, Nausea and/or Vomiting - Discharge Plan *PRESCRIPTION DRUG MONITORING PROGRAM REVIEWED*: No *COPY OF PRESCRIPTION DRUG MONITORING REPORT IN PATIENT GARTH: No Prescriptions/Med Rec: Acetaminophen/oxyCODONE [Percocet 325-5 MG] 2 tab PO Q4H PRN #25 tablet PRN Reason: Pain (Severe 7-10) Home Medications: Home Meds Vits #93/Iron Fum/FA [ Formula Tablet] 12/24/19 [History] Acetaminophen/oxyCODONE [Percocet 325-5 MG] 2 tab PO Q4H PRN #25 tablet [Rx] Docusate Sodium [Colace] 100 mg PO Q12H PRN cap 12/27/19 [Rx] Ibuprofen [Motrin] 600 mg PO Q6H PRN tablet 12/27/19 [Rx] Referrals: Cassie Polanco MD [Primary Care Provider] - (1-2 weeks for post op check ) - Discharge Summary/Plan Comment DC Time >30 min.: No - Patient Data Vitals - Most Recent: Last Vital Signs Temp 36.8 C 12/26/19 19:44 Pulse 101 H 12/27/19 06:16 Resp 16 12/27/19 06:16 BP 140/77 12/27/19 06:16 Pulse Ox 94 L 12/27/19 06:16 Weight - Most Recent: 118.252 kg I&O - Last 24 hours: Intake & Output 12/26/19 12/27/19 12/27/19 22:59 06:59 14:59 Intake Total 480 Balance 480 Med Orders - Current: Current Medications Diphenhydramine HCl (Benadryl) 25 mg IVPUSH Q6H PRN PRN Reason: Itching or Nausea Docusate Sodium (Colace) 100 mg PO Q12H PRN PRN Reason: Constipation Last Admin: 12/26/19 21:01 Dose: 100 mg Ibuprofen (Motrin) 600 mg PO Q6H PRN PRN Reason: mild pain or fever Last Admin: 12/26/19 21:05 Dose: 600 mg Naloxone HCl (Narcan) 0.1 mg IVPUSH SEECOMMENT PRN PRN Reason: Respiratory Depression Ondansetron HCl (Zofran) 4 mg IV Q8H PRN PRN Reason: Nausea/Vomiting Oxycodone/Acetaminophen (Percocet 325-5 Mg) 1 tab PO Q4H PRN PRN Reason: Pain (moderate 4-6) Last Admin: 12/27/19 05:35 Dose: 1 tab Oxycodone/Acetaminophen (Percocet 325-5 Mg) 2 tab PO Q4H PRN PRN Reason: Pain (severe 7-10) Last Admin: 12/26/19 19:42 Dose: 2 tab Witch Radha (Tucks) 1 pad TOP ASDIRECTED PRN PRN Reason: Perineal Comfort Measure Discontinued Medications Cefazolin Sodium (Ancef) Confirm Administered Dose 3 gm .ROUTE .STK-MED ONE Stop: 12/24/19 11:38 Citric Acid/Sodium Citrate (Bicitra Solution) Confirm Administered Dose 30 ml .ROUTE .STK-MED ONE Stop: 12/24/19 11:19 Last Admin: 12/25/19 07:50 Dose: Not Given Citric Acid/Sodium Citrate (Bicitra Solution) 30 ml PO ONETIME ONE Stop: 12/24/19 11:21 Last Admin: 12/24/19 11:18 Dose: 30 ml Diphenhydramine HCl (Benadryl) 25 mg IVPUSH Q6H PRN PRN Reason: pruritis Ephedrine Sulfate (Ephedrine Sulfate) 5 mg IVPUSH ASDIRECTED PRN PRN Reason: Hypotension Last Admin: 12/24/19 06:26 Dose: 5 mg Fentanyl (Sublimaze) 100 mcg EPIDUR Q3H PRN PRN Reason: Pain Last Admin: 12/24/19 05:20 Dose: 100 mcg Fentanyl/Bupivacaine HCl (Fentanyl/Bupivacaine/Ns 2 Mcg-0.125% 100 Ml) 100 ml EPIDUR ASDIRECTED PRN PRN Reason: Pain Last Admin: 12/24/19 05:44 Dose: 100 ml Ampicillin Sodium 2 gm/ Sodium (Chloride) 100 mls @ 200 mls/hr IV ONETIME ONE Stop: 12/24/19 04:12 Last Admin: 12/24/19 03:57 Dose: 200 mls/hr Ampicillin Sodium 1 gm/ Sodium (Chloride) 100 mls @ 200 mls/hr IV Q4H [facility] Last Admin: 12/25/19 08:00 Dose: Not Given Lactated Ringer's (Ringers, Lactated) 1,000 mls @ 100 mls/hr IV ASDIRECTED [facility] Last Infusion: 12/24/19 07:55 Dose: 100 mls/hr Oxytocin/Lactated Ringer's (Pitocin In Lr 10 Units/1,000 Ml) 10 unit in 1,000 mls @ 500 mls/hr IV .CONTINUOUS [facility] Azithromycin 500 mg/ Sodium (Chloride) 250 mls @ 250 mls/hr IV ONETIME ONE Stop: 12/24/19 12:29 Last Admin: 12/25/19 08:00 Dose: Not Given Cefazolin Sodium/Dextrose 2 gm (/ Premix) 50 mls @ 100 mls/hr IV ONETIME ONE Stop: 12/24/19 11:49 Last Admin: 12/25/19 07:59 Dose: Not Given Lactated Ringer's (Ringers, Lactated) 1,000 mls @ 125 mls/hr IV ASDIRECTED [facility] Oxytocin/Lactated Ringer's (Pitocin In Lr 10 Units/1,000 Ml) 10 unit in 1,000 mls @ 100 mls/hr IV ASDIRECTED [facility] Lactated Ringer's (Ringers, Lactated) Confirm Administered Dose 1,000 mls @ as directed .ROUTE .STK-MED ONE Stop: 12/24/19 11:38 Dextrose/Lactated Ringer's (Dextrose 5%-Lactated Ringers) 1,000 mls @ 125 mls/ hr IV ASDIRECTED [facility] Stop: 12/24/19 22:00 Last Admin: 12/24/19 18:21 Dose: 125 mls/hr Ketorolac Tromethamine (Toradol) Confirm Administered Dose 30 mg .ROUTE .STK- MED ONE Stop: 12/24/19 12:40 Ketorolac Tromethamine (Toradol) 30 mg IVPUSH Q6H [facility] Stop: 12/25/19 06:31 Last Admin: 12/25/19 00:57 Dose: 30 mg Metoclopramide HCl (Reglan) Confirm Administered Dose 10 mg .ROUTE .STK-MED ONE Stop: 12/24/19 11:19 Last Admin: 12/25/19 07:50 Dose: Not Given Metoclopramide HCl (Reglan) 10 mg IVPUSH ONETIME ONE Stop: 12/24/19 11:21 Last Admin: 12/24/19 11:19 Dose: 10 mg Miscellaneous Medication (Phenylephrine 1 Mg/10 Ml-Ns) Confirm Administered Dose 1 mg IV .STK-MED ONE Stop: 12/24/19 11:52 Miscellaneous Medication (Phenylephrine 1 Mg/10 Ml-Ns) Confirm Administered Dose 1 mg IV .STK-MED ONE Stop: 12/24/19 12:15 Morphine Sulfate (Duramorph Pf) Confirm Administered Dose 1 mg .ROUTE .STK-MED ONE Stop: 12/24/19 11:45 Ondansetron HCl (Zofran) 4 mg IVPUSH Q4H PRN PRN Reason: Nausea/Vomiting Oxytocin (Pitocin) Confirm Administered Dose 10 unit .ROUTE .STK-MED ONE Stop: 12/24/19 12:20 Sodium Chloride (Saline Flush) 10 ml FLUSH ASDIRECTED PRN PRN Reason: Keep Vein Open
[2019-12-27] MEDS: Ibuprofen 600 MG Tab PO PRN ×2 (09:02→15:56)
[2019-12-27] MEDS: Docusate Sodium 100 MG Cap PO PRN (09:03)
== END 2019-12-27 16:00 | disposition home or self-care (01) | DRG 540 ==
LOC: JD.OBCHECK 03:25 → JD.OB 03:25 → JD.OBCHECK 03:43 → JD.OB 03:43 → OBSVTOIN 11:20 → JD.OB 11:21
PROVIDERS: ADMIT Obstetrics & Gynecology; ATTEND Obstetrics & Gynecology
PROC: 10D00Z1 Extraction of Products of Conception, Low, Open Approach (ICD-10-PCS; principal; 2019-12-24)
PROC: 3E0R3BZ Introduction of Anesthetic Agent into Spinal Canal, Percutaneous Approach (ICD-10-PCS; 2019-12-24)
DX: O48.0 Post-term pregnancy (principal); O36.8330 Maternal care for abnormalities of the fetal heart rate or rhythm, third trimester, not applicable or unspecified; O99.214 Obesity complicating childbirth; E66.9 Obesity, unspecified; O76 Abnormality in fetal heart rate and rhythm complicating labor and delivery; Z37.0 Single live birth; Z3A.40 40 weeks gestation of pregnancy; O66.5 Attempted application of vacuum extractor and forceps
CPT/HCPCS: 36415; 51702; 59025; 84439; 84443; 85025; 85027; 86592; 86850; 86900; 86901; A9270-GY; J0290; J0690; J1885; J2274; J2370; J2590; J2765; J3010; J7050; J7120; J7121